=== PATIENT | male | born 1990 | race Caucasian/White ===

== ENCOUNTER 2021-02-04 17:53 | Emergency (ER) | payer OTHER, SELFPAY ==
[2021-02-04 18:00] VITALS: BP 153/104; PULSE 93; RESP 18; TEMP 36.2; O2SAT 97; BMI 45.0
--- NOTE | 2021-02-04 18:47 | ED_ITS ---
HPI - Extremity Problem General Chief complaint: Extremity Problem Stated complaint: ankle swelling Time Seen by Provider: 02/04/21 18:18 Source: patient Mode of arrival: ambulatory Limitations: no limitations History of Present Illness HPI Narrative: 30-year-old male previously healthy here with complaints of left ankle swelling and pain. Patient tells me that initially he had pain in his left great toe about 4 days ago and now the pain and swelling has migrated to his ankle. No injury or trauma. No fevers or chills. Patient smokes cigarettes daily. denies any known history of high blood pressure. Does not currently have a primary care doctor or insurance. Related Data Previous Rx's Medication Instructions Recorded amlodipine 5 mg tablet (Norvasc) 5 mg PO DAILY #30 tab 02/04/21 colchicine 0.6 mg tablet 0.6 mg PO BID #14 tab 02/04/21 oxycodone-acetaminophen 5 mg-325 1 tab PO Q6H PRN #10 tab 02/04/21 mg tablet (Percocet) prednisone 20 mg tablet 40 mg PO DAILY #10 tab 02/04/21 Allergies Allergy/AdvReac Type Severity Reaction Status Date / Time No Known Allergies Allergy Verified 02/04/21 17:59 [No Known Allergies*] Review of Systems Review of Systems: Yes all other systems are reviewed and are negative Constitutional: Constitutional: Reports no additional constitutional complaints, Denies body ache(s), Denies chills, Denies fever(s), Denies headache(s) and Denies weakness Eyes: Eyes: Reports no additional eye complaints and Denies change in vision ENT: Reports system reviewed and no additional complaints, except as documented, Denies dizziness, Denies headache(s), Denies nasal congestion, Denies nasal discharge and Denies neck pain Cardiovascular: Cardiovascular: Reports no additional cardiovascular complaints, Denies chest pain, Denies leg edema and Denies dyspnea Respiratory: Respiratory: Reports no additional respiratory complaints, Denies cough and Denies dyspnea Gastrointestinal: Gastrointestinal: Reports no additional gastrointestinal complaints, Denies abdominal pain, Denies diarrhea, Denies nausea and Denies vomiting Genitourinary: Genitourinary: Denies urinary incontinence Musculoskeletal: Musculoskeletal: Reports no additional musculoskeletal complaints, Denies back pain, Reports arthralgias, Reports joint swelling, Denies neck pain, Denies numbness and Denies tingling Integumentary/Breasts: Skin/Breast: Reports system reviewed and no additional complaints, except as docu and Denies rash Neurologic: Reports system reviewed and no additional complaints, except as documented, Denies Abnormal speech present, Denies dizziness, Denies headache(s), Denies numbness, Denies tingling and Denies weakness PMFSH Past Medical History Attestation statement: The following information was validated with the patient. Source: old records reviewed and nursing notes reviewed Social History Social History Advance Directives: No Advance Directives Information Provided: Yes Physical Exam Vital Signs: Vital Signs: Last Vital Signs Temp 97.1 F 02/04/21 18:00 Pulse 93 02/04/21 18:00 Resp 18 02/04/21 18:00 BP 153/104 H 02/04/21 18:00 Pulse Ox 97 02/04/21 18:00 Body Mass Index 45.0 Const: General: cooperative, healthy appearing, comfortable and no acute distress Orientation/consciousness: patient oriented x3 Limitations: no limitations HENMT: Head: Yes normal to inspection Ears: hearing grossly normal bilaterally General nose exam: Normal external nose present Face and sinus: Yes normal facial exam Mouth: Normal oral and palatal mucosa present Throat: Yes posterior oropharynx normal Eyes: General: appearance normal, both eyes and all related structures Pupils: Equal, round and reactive pupils present Neck: Neck: Yes normal visual inspection Chest: Chest palpation & inspection: normal inspection of the chest Resp: Effort & Inspection: normal respiratory effort Auscultation: clear to auscultation bilaterally Cardio: Rate: regular rate Rhythm: regular rhythm Peripheral pulses: Peripheral pulses 2+ throughout GI: Inspection: Yes normal to inspection Palpation (GI): Soft to palpation and nontender Auscultation: normal bowel sounds Back/Spine/Pelvis: Thoracic/Lumbar Spine: thoracic and lumbar spine normal to inspection Skin: General skin exam: no rashes or lesions noted Neuro: General: patient oriented x3, no focal motor deficits and normal sensation to monofilament Cranial nerves: Yes Equal, round and reactive pupils present Cognition (Neuro): normal cognition Speech: No Abnormal speech present Gait exam (Neuro): Normal gait present Motor exam (neuro): 5/5 motor strength present throughout Extrem: Other: There is tenderness to the 1st joint at the left foot with warmth and swelling. No redness. There is some slight swelling over the lateral aspect of the left ankle with some mild warmth and swelling. Full range of motion. Palpable pulses noted. General: Yes normal to inspection, Yes no pedal edema and Yes no calf tenderness Course Course Course Narrative: Exam is consistent with gout. likely secondary to uncontrolled high blood pressure, smoking history and dietary choices. we discussed this at length. patient needs to make dietary changes, limit smoking and we will start him on a low-dose blood pressure medication with close follow-up with his primary care doctor. Reviewed worrisome signs and symptoms of when to return to the emergency department. Comfortable discharge home. MDM - Extremity (Nontraumatic) Medical Records Attestation: I reviewed the patient's medical records. Procedures Procedure Narrative Procedure Narrative: cruthces for home Discharge Plan Discharge Clinical Impression: Gout Patient Disposition: Home, Self-Care Instructions: Low Purine Diet (ED), Gout (ED) Additional Instructions: You have gout. This is likely from smoking and to having uncontrolled high blood pressure. [employer] foods that cause gout flares. limit intake of these foods. follow a low-sodium diet. stop smoking start the medication for blood pressure. we are starting you on a low dose of this medication and you will need to follow up with primary care doctor so he may titrate the medication to better control your blood pressure Prescriptions: New amlodipine [Norvasc] 5 mg tablet 5 mg PO DAILY Qty: 30 RF: 0 oxycodone-acetaminophen [Percocet] 5-325 mg tablet 1 tab PO Q6H PRN (Reason: pain) Qty: 10 RF: 0 colchicine 0.6 mg tablet 0.6 mg PO BID Qty: 14 RF: 0 prednisone 20 mg tablet 40 mg PO DAILY Qty: 10 RF: 0 Referrals: Physician,Unknown J [Primary Care Provider] - 2 days Stand Alone Forms: Work/School Release Print Language: Guatemalan
== END 2021-02-04 19:15 | disposition home or self-care (01) ==
PROVIDERS: Emergency Provider Internal Medicine
DX: M10.072 Idiopathic gout, left ankle and foot (principal); M25.572 Pain in left ankle and joints of left foot; F17.200 Nicotine dependence, unspecified, uncomplicated
CPT/HCPCS: 99283

== ENCOUNTER 2023-05-07 08:46 | Emergency (ER) | payer SELFPAY ==
[2023-05-07 08:59] VITALS: BP 127/79; PULSE 91; RESP 20; TEMP 36.4; O2SAT 97; BMI 40.6
--- NOTE | 2023-05-07 10:34 | ED_ITS ---
HPI - General Adult General Chief complaint: Extremity Injury, Lower Stated complaint: both feet swollen Time Seen by Provider: 05/07/23 10:12 Source: patient and aerial photograph interpreter Mode of arrival: ambulatory Limitations: no limitations and language barrier History of Present Illness HPI narrative: Patient is a 32 year old assigned male at with a history of gout presenting to the emergency department today with left ankle swelling. Patient states that over the last few day she he has left sided ankle swelling and pain with any movement or touch. Patient denies any numbness, tingling, dizziness, lightheadedness, abdominal pain, nausea, vomiting, fever, chills, blurry vision, double vision, loss of vision, chest pain, difficulty breathing, shortness of breath, back pain, night sweats, pain with urination, increased urinary frequency, increased urinary urgency, blood in his urine or stool, syncope or a near syncopal episode, recent trauma or falls, bowel incontinence, bladder incontinence, bowel retention, bladder retention, or any other complaints at this time. Onset (ago): day(s) Location: left and lower extremity Radiation: non-radiation Severity: mild Severity scale (1-10): 3 Quality: aching and dull Pain Consistency: constant Relieving factors: none Exacerbating factors: movement and other (palpation) Associated symptoms: denies other symptoms Treatments prior to arrival: none Related Data Previous Rx's Medication Instructions Recorded amlodipine 5 mg tablet (Norvasc) 5 mg PO DAILY #30 tabs 02/04/21 colchicine 0.6 mg tablet 0.6 mg PO BID #14 tabs 02/04/21 oxycodone-acetaminophen 5 mg-325 1 tab PO Q6H PRN pain #10 tabs 02/04/21 mg tablet (Percocet) prednisone 20 mg tablet 40 mg (2 x 20 mg) PO DAILY #10 tabs 02/04/21 naproxen 500 mg tablet 500 mg PO BID 7 days #14 tabs 05/07/23 prednisone 20 mg tablet 20 mg PO DAILY 7 days #7 tabs 05/07/23 Allergies Allergy/AdvReac Type Severity Reaction Status Date / Time No Known Allergies Allergy Verified 02/04/21 17:59 [No Known Allergies*] Review of Systems Constitutional: Constitutional: Reports no additional constitutional complaints, Denies chills, Denies fever(s) and Denies night sweats Eyes: Eyes: Reports no additional eye complaints, Denies blurry vision, Denies change in vision, Denies diplopia, Denies eye discharge, Denies loss of vision and Denies eye pain ENT: Denies dizziness Cardiovascular: Cardiovascular: Reports no additional cardiovascular complaints, Denies chest pain, Denies lightheadedness, Denies Loss of Consciousness and Denies dyspnea Respiratory: Respiratory: Reports no additional respiratory complaints and Denies dyspnea Gastrointestinal: Gastrointestinal: Reports no additional gastrointestinal complaints, Denies abdominal pain, Denies melena, Denies hematochezia, Denies change in bowel habits and Denies change in stool character Genitourinary: Genitourinary: Reports no additional male genitourinary complaints, Denies hematuria, Denies oliguria, Denies difficulty urinating, Denies dysuria, Denies urinary frequency, Denies urinary hesitancy, Denies urinary incontinence and Denies urinary urgency Musculoskeletal: Musculoskeletal: Reports no additional musculoskeletal complaints, Denies numbness and Denies tingling Comments: left ankle swelling and pain Neurologic: Denies dizziness, Denies loss of vision, Denies numbness and Denies tingling Psychiatric: Psychiatric: Reports no additional psychiatric complaints Endocrine: Endocrine: Reports no additional endocrine complaints Hematologic/Lymphatic: Hematologic/Lymphatic: Reports no additional hematologic/lymphatic complaints Allergic/Immunologic: Allergic/Immunologic: Reports no additional allergic/immunologic complaints [facility] Past Medical History Attestation statement: The following information was validated with the patient. Source: old records reviewed and nursing notes reviewed Social History Social History Advance Directives: No Advance Directives Information Provided: No Physical Exam ED Vital Signs: Vital Signs - 24 hr 05/07/23 08:59 Temperature 97.5 F Pulse Rate 91 Respiratory Rate 20 Blood Pressure 127/79 Pulse Oximetry 97 Oxygen Delivery Method Room Air BMI result Body Mass Index 40.6 Const General: cooperative, no acute distress, alert and awake Nutritional Appearance: well nourished Orientation/consciousness: patient oriented x3 Limitations: no limitations HENMT Head: Yes normal to inspection and Yes atraumatic Ears: hearing grossly normal bilaterally and external ears normal General nose exam: Normal external nose present, no nasal discharge noted and no epistaxis Face and sinus: Yes normal facial exam, No abrasion and No laceration Mouth: Normal oral and palatal mucosa present, no drooling and no muffled voice Eyes General: appearance normal, both eyes and all related structures Periorbital: periorbital findings normal Eyelids: Yes eyelids normal Conjunctivae: conjunctivae normal Pupils: Equal, round and reactive pupils present EOM: EOMs intact bilaterally Neck Neck: Yes normal visual inspection, Yes full ROM and Yes no lymphadenopathy Chest Chest palpation & inspection: normal inspection of the chest Resp Effort & Inspection: normal respiratory effort and able to speak in complete sentences GI Inspection: Yes normal to inspection Neuro General: patient oriented x3 and moves all extremities Cranial nerves: Yes Equal, round and reactive pupils present Cognition (Neuro): normal cognition Motor exam (neuro): 5/5 motor strength present throughout Sensory Exam: Normal double simultaneous stimulation for sensation Coordination: [id number] test normal Extrem Other: left ankle swelling and pain to palpation of the left ankle General: Yes full ROM and Yes capillary refill normal Psych Appearance: grossly normal Mental Status: mental status grossly normal Affect: normal affect Attitude: cooperative Thought process: Normal thought process present Thought content: Normal thought content present Insight: Good insight present (Psych) Medications Administered Discontinued Medications Generic Name Dose Route Start Last Admin Trade Name Freq PRN Reason Stop Dose Admin Ketorolac Tromethamine 15 mg 05/07/23 10:56 05/07/23 11:59 Ketorolac Tromethamine 15 Mg/Ml Vial IM 05/07/23 10:57 15 mg ONCE ONE Administration Methylprednisolone Sodium Succinate 60 mg 05/07/23 10:56 05/07/23 11:59 Methylprednisolone Sod Succ 125 Mg/2 Ml Vial IM 05/07/23 10:57 60 mg ONCE ONE Administration Medical Decision Making Medical Decision Making [facility] Narrative: Patient is a 32 year old assigned male at with a history of gout presenting to the emergency department today with left sided ankle pain. Patient's physical exam was as noted in the physical exam portion of this note. Patient's physical exam is most consistent with a gout flare. I explained my physical exam findings to the patient. I answered all questions asked by the patient. Patient received IM Toradol and Solu-medrol which he stated helped his symptoms significantly. I stressed the importance of the patient taking his medication as prescribed. I stressed the importance of the patient following up with his primary care provider. I stressed the importance of the patient returning to the emergency department immediately if his symptoms were to worsen or if he were to develop any dizziness, shortness of breath, difficulty breathing, chest pain, blurry vision, loss of vision, nausea, vomiting, abdominal pain, fever, chills, back pain, or any other complaints. Patient verbalized agreement and understanding with this treatment plan and discharge. Differential Diagnosis Differential Diagnoses: The differential diagnosis associated with the presentation includes Left ankle gout Left ankle pain Left ankle swelling Admission/Observation Consideration of admission/observation: Escalation of care including admission/observation considered Patient would have been admitted to the hospital had his clinical presentation warranted hospital admission. Tests considered The following testing was considered but not selected: An x-ray of the left ankle was considered however, the patient's current clinical presentation did not warrant it. This was explained to the patient who verbalized understanding and agreement. Prescription Management I considered prescription management with: Pain Medication (patient prescribed pain medication) Chronic Conditions Patient?s care impacted by: Other (hx of gout) Discharge Plan Discharge Clinical Impression: Gout Patient Disposition: Home, Self-Care Instructions: Low Purine Diet (ED), Gout (ED) Additional Instructions: Follow up with your primary care provider. Return to the emergency department immediately if your symptoms worsen or if you develop any dizziness, shortness of breath, difficulty breathing, chest pain, blurry vision, loss of vision, nausea, vomiting, abdominal pain, fever, chills, back pain, or any other complaints. Jesse un seguimiento con berkowitz proveedor de atenci?n primaria. Regrese al departamento de emergencias inmediatamente si karin s?ntomas empeoran o si presenta mareos, dificultad para respirar, dificultad para respirar, dolor en el pecho, visi?n borrosa, p?rdida de la visi?n, n?useas, v?mitos, dolor abdominal, fiebre, escalofr?os, dolor de espalda o cualquier otras quejas. Prescriptions: New prednisone 20 mg tablet 20 mg PO DAILY 7 Days Qty: 7 0RF naproxen 500 mg tablet 500 mg PO BID 7 Days Qty: 14 0RF No Action amlodipine [Norvasc] 5 mg tablet 5 mg PO DAILY Qty: 30 0RF oxycodone-acetaminophen [Percocet] 5-325 mg tablet 1 tab PO Q6H PRN (Reason: pain) Qty: 10 0RF colchicine 0.6 mg tablet 0.6 mg PO BID Qty: 14 0RF Rx Instructions: discontinue when feeling better prednisone 20 mg tablet 40 mg PO DAILY Qty: 10 0RF Referrals: [facility] [place] Family Medicine [Provider Group] (Call to establish and follow up with a primary care provider. If you already have a primary care provider, please follow up with them. Llame para establecer y realizar un seguimiento con un proveedor de atenci?n primaria. Si ya tiene un proveedor de atenci?n primaria, jesse un seguimiento con ?l.) [facility] [place] Primary Care, Mellissa [Provider Group] (Call to establish and follow up with a primary care provider. If you already have a primary care provider, please follow up with them. Llame para establecer y realizar un seguimiento con un proveedor de atenci?n p rimaria. Si ya tiene un proveedor de atenci?n primaria, jesse un seguimiento con ?l.) [facility] [place] Primary Care,Jennifer [Provider Group] (Call to establish and follow up with a primary care provider. If you already have a primary care provider, please follow up with them. Llame para establecer y realizar un seguimiento con un proveedor de atenci?n primaria. Si ya tiene un proveedor de atenci?n primaria, jesse un seguimiento con ?l.) Interventions: ED Discharge Assessment Last Done: 05/07/23 12:06 Discharge Date/Time: 05/07/23 12:06 Print Language: Gibraltarian
[2023-05-07] MEDS: methylPREDNISolone Sod Succ 125 MG/2 ML VIAL 60 MG IM (11:59)
[2023-05-07] MEDS: Ketorolac Tromethamine 15 MG/ML VIAL IM (11:59)
== END 2023-05-07 12:06 | disposition home or self-care (01) ==
PROVIDERS: Emergency Provider Emergency Medicine
DX: M10.9 Gout, unspecified (principal)
CPT/HCPCS: 96372; 99283; 99284; J1885; J2930

== ENCOUNTER 2024-05-29 19:52 | Emergency (ER) | payer MEDICAID, SELFPAY ==
[2024-05-29 20:01] VITALS: BP 145/83; PULSE 104; RESP 18; TEMP 37.1; O2SAT 95; BMI 46.1
--- NOTE | 2024-05-29 20:03 | ED.GENADULT ---
HPI - General Adult General Chief complaint: Extremity Problem Stated complaint: bilateral feet redness swelling Time Seen by Provider: 05/29/24 23:08 Source: patient Mode of arrival: ambulatory Limitations: no limitations History of Present Illness ED Provider: HPI narrative: Patient is 34 years old with history of gout comes here for left ankle pain started few days ago getting worse patient's feel throbbing pain in left ankle been while not moving patient has been seen here last year for the same. Patient has had red meat last few days Related Data Previous Rx's ?Medication ?Instructions ?Recorded amlodipine 5 mg tablet (Norvasc) 5 mg PO DAILY #30 tabs 02/04/21 colchicine 0.6 mg tablet 0.6 mg PO BID #14 tabs 02/04/21 oxycodone-acetaminophen 5 mg-325 1 tab PO Q6H PRN pain #10 tabs 02/04/21 mg tablet (Percocet) prednisone 20 mg tablet 40 mg (2 x 20 mg) PO DAILY #10 tabs 02/04/21 naproxen 500 mg tablet 500 mg PO BID 7 days #14 tabs 05/07/23 prednisone 20 mg tablet 20 mg PO DAILY 7 days #7 tabs 05/07/23 allopurinol 100 mg tablet 100 mg PO DAILY #90 tabs 05/30/24 colchicine 0.6 mg tablet 0.6 mg PO DAILY #90 tabs 05/30/24 ibuprofen 600 mg tablet 600 mg PO Q6H PRN fever or pain 05/30/24 #30 tabs prednisone 20 mg tablet 60 mg (3 x 20 mg) PO DAILY #15 tabs 05/30/24 Allergies Allergy/AdvReac Type Severity Reaction Status Date / Time No Known Allergies Allergy Verified 05/29/24 20:06 [No Known Allergies*] Review of Systems Review of Systems: Yes all other systems are reviewed and are negative PMFSH Social History Social History Advance Directives: No Do you have a plan to hurt others: No Plan Physical Exam ED Vital Signs: Vital Signs - 24 hr 05/29/24 20:01 05/30/24 00:48 Temperature 98.7 F Pulse Rate 104 H 85 Respiratory Rate 18 18 Blood Pressure 145/83 H 123/51 L Pulse Oximetry 95 97 Oxygen Delivery Method Room Air Room Air BMI result Body Mass Index 46.1 Appearance: Alert. Oriented X3. No acute distress. Eyes: no pallor or icterus ENT: Pharynx normal. Oral Mucosa moist Neck: Normal inspection. Neck supple. CVS: Normal heart rate and rhythm. Pulses normal. Respiratory: No respiratory distress. Equal air entry bilateral, no wheezing/rales/rhonchi Abd: soft, not tender Skin: Skin warm and dry. Normal skin color. Normal skin turgor. Extremities: Left ankle diffuse swelling no deformity neurovascular intact no calf tenderness Neuro: Oriented X 3. Course Course Course Narrative: This is an RME: Additional HPI, ROS, PE not included below will be deferred to primary provider. RME assessment and note performed by: Rosemary Sky PA-C This is a [id number]-male who presents to the ER with complaints of bilateral leg pain and swelling. Reporting hx of gout and believes that symptoms feel similar. 2+ pitting edema noted BL. No known hx of CHF. No drug hx. No CP or SOB. Plan: Labs, further ER eval needed Medications Administered Discontinued Medications Generic Name Dose Route Start Last Admin Trade Name Freq PRN Reason Stop Dose Admin Colchicine 1.2 mg 05/29/24 23:13 05/29/24 23:51 Colchicine 0.6 Mg Tablet PO 05/29/24 23:14 1.2 mg ONCE ONE Administration Prednisone 60 mg 05/29/24 23:13 05/29/24 23:51 Prednisone 20 Mg Tablet PO 05/29/24 23:14 60 mg ONCE ONE Administration Medical Decision Making Medical Decision Making [facility] Narrative: Patient's gouty arthritis of the left ankle given prednisone colchicine feeling much better will discharge on same Lab Data 05/29/24 20:42 05/29/24 20:42 Labs: Lab Results 05/29/24 Range/Units 20:42 WBC 12.3 H (4.8-10.8) X10*3/uL RBC 4.86 (4.60-5.80) X10*6/uL Hgb 14.9 (14.0-18.0) g/dl Hct 42.9 (42.0-52.0) % MCV 88.3 (80.0-98.0) fL MCH 30.7 (27.0-33.0) pg MCHC 34.7 (31.0-36.0) g/dl RDW 12.7 (11.0-16.0) % Plt Count 250 (160-400) X10*3/uL MPV 11.0 (9.4-12.4) fL Immature Gran % (Auto) 0.3 (0.0-0.4) % Neut % (Auto) 66.7 (45-73) % Lymph % (Auto) 21.0 (20-40) % [place] % (Auto) 7.4 (2-11) % Eos % (Auto) 4.2 H (0-4) % Baso % (Auto) 0.4 (0-2) % Lymph # (Auto) 2.6 (1.2-4.9) X10*3/uL [place] # (Auto) 0.9 (0.1-1.2) X10*3/uL Eos # (Auto) 0.5 H (0.0-0.4) X10*3/uL Baso # (Auto) 0.1 (0.0-0.2) X10*3/uL Abs Immat Gran (auto) 0.04 H (0.00-0.03) X10*3/uL Absolute Neuts (auto) 8.2 (2.0-8.3) x10*3/uL Absolute Nucleated RBC 0.000 (0.0-0.012) X10*3/uL Nucleated RBC % (auto) 0.0 (0.0-0.2) /100WBC ESR 11 (0-15) MM/HR Sodium 138 (135-145) mmol/L Potassium 4.1 (3.3-5.1) mmol/L Chloride 103 (96-108) mmol/L Carbon Dioxide 26 (22-29) mmol/L Anion Gap 13 (12-20) BUN 15 (9-16) mg/dL Creatinine 0.92 (0.5-1.4) mg/dL Estim Creat Clear Calc 169.9 Estimated GFR > 60 Random Glucose 111 (60-115) mg/dL Uric Acid 8.6 H (3.4-7.0) mg/dL Calcium 9.4 (8.4-10.2) mg/dL Total Bilirubin 0.3 (0.0-1.0) mg/dL Direct Bilirubin 0.1 (0.0-0.5) mg/dL AST 17 (5-37) U/L ALT 23 (0-40) U/L Alkaline Phosphatase 70 (39-117) U/L C-Reactive Protein 3.93 H (< or = 0.50) mg/dL B-Natriuretic Peptide < 10 (<100) pg/mL Total Protein 8.0 (6.5-8.0) g/dL Albumin 4.0 (3.5-5.0) g/dL Discharge Plan Discharge Clinical Impression: Gout Patient Disposition: Home, Self-Care Instructions: Low Purine Diet (ED), Gout (ED) Additional Instructions: Take medication as prescribed Follow up with PCP Prescriptions: New prednisone 20 mg tablet 60 mg PO DAILY Qty: 15 0RF colchicine 0.6 mg tablet 0.6 mg PO DAILY Qty: 90 0RF allopurinol 100 mg tablet 100 mg PO DAILY Qty: 90 0RF ibuprofen 600 mg tablet 600 mg PO Q6H PRN (Reason: fever or pain) Qty: 30 0RF No Action amlodipine [Norvasc] 5 mg tablet 5 mg PO DAILY Qty: 30 0RF oxycodone-acetaminophen [Percocet] 5-325 mg tablet 1 tab PO Q6H PRN (Reason: pain) Qty: 10 0RF colchicine 0.6 mg tablet 0.6 mg PO BID Qty: 14 0RF Rx Instructions: discontinue when feeling better prednisone 20 mg tablet 40 mg PO DAILY Qty: 10 0RF prednisone 20 mg tablet 20 mg PO DAILY 7 Days Qty: 7 0RF naproxen 500 mg tablet 500 mg PO BID 7 Days Qty: 14 0RF Print Language: Trinidadian
--- NOTE | 2024-05-29 20:08 | ECG_ITS ---
Test Reason : tachycardia Blood Pressure : */* mmHG Vent. Rate : 100 BPM Atrial Rate : 100 BPM P-R Int : 158 ms QRS Dur : 94 ms QT Int : 308 ms P-R-T Axes : 43 20 23 degrees QTcB Int : 397 ms Normal sinus rhythm Minimal voltage criteria for LVH, may be normal variant ( R in aVL ) Borderline ECG When compared with ECG of 23-Apr-2017 19:34, No significant change was found Referred By: Rosemary Sky Electronically Signed By: Eleazar Cartagena
[2024-05-29 20:47] LABS: MANUAL DIFF FLAG NO
[2024-05-29 21:05] LABS: Alanine Aminotransferase 23 U/L (0-40); Alkaline Phosphatase 70 U/L (39-117); Anion Gap 13 (12-20); Aspartate Amino Transferase 17 U/L (5-37); Bilirubin Direct 0.1 mg/dL (0.0-0.5); Bilirubin Total 0.3 mg/dL (0.0-1.0); Blood Urea Nitrogen 15 mg/dL (9-16); C Reactive Protein 3.93 mg/dL (< or = 0.50); Calcium 9.4 mg/dL (8.4-10.2); Carbon Dioxide 26 mmol/L (22-29); Chloride 103 mmol/L (96-108); Creatinine Clr Calc Pharmacy 169.9; Estimated Glomerular Filt Rate > 60; Glucose Random 111 mg/dL (60-115); Potassium 4.1 mmol/L (3.3-5.1); Sodium 138 mmol/L (135-145); Uric Acid 8.6 mg/dL (3.4-7.0)
[2024-05-29 21:10] LABS: B Type Natriuretic Peptide < 10 pg/mL (<100)
[2024-05-29 21:20] LABS: Basophils Absolute Auto 0.1 X10*3/uL (0.0-0.2); Basophils Percent Auto 0.4 % (0-2); Eosinophils Absolute Auto 0.5 X10*3/uL (0.0-0.4); Eosinophils Percent Auto 4.2 % (0-4); Hematocrit 42.9 % (42.0-52.0); Hemoglobin 14.9 g/dl (14.0-18.0); Imm Gran Abs Auto 0.04 X10*3/uL (0.00-0.03); Imm Gran Pct Auto 0.3 % (0.0-0.4); Lymphocytes Absolute Auto 2.6 X10*3/uL (1.2-4.9); Mean Corpuscular HGB Conc 34.7 g/dl (31.0-36.0); Mean Corpuscular Hemoglobin 30.7 pg (27.0-33.0); Mean Corpuscular Volume 88.3 fL (80.0-98.0); Monocytes Absolute Auto 0.9 X10*3/uL (0.1-1.2); Monocytes Percent Auto 7.4 % (2-11); Neutrophils Absolute Auto 8.2 x10*3/uL (2.0-8.3); Neutrophils Percent Auto 66.7 % (45-73); Platelet Count 250 X10*3/uL (160-400); Red Blood Count 4.86 X10*6/uL (4.60-5.80); Red Cell Distribution Width 12.7 % (11.0-16.0); White Blood Count 12.3 X10*3/uL (4.8-10.8)
[2024-05-29 21:25] LABS: Erythrocyte Sedimentation Rate 11 MM/HR (0-15)
[2024-05-29] MEDS: predniSONE 20 MG TABLET 60 MG PO (23:51)
[2024-05-29] MEDS: Colchicine 0.6 MG TABLET 1.2 MG PO (23:51)
[2024-05-30 00:41] VITALS: BP 123/51; PULSE 85; RESP 18; TEMP 36.6; O2SAT 97
[2024-05-30 00:48] VITALS: BP 123/51; PULSE 85; RESP 18; O2SAT 97
== END 2024-05-30 00:41 | disposition home or self-care (01) ==
PROVIDERS: Physician Assistant Medical; Emergency Provider Internal Medicine
DX: M10.9 Gout, unspecified (principal); M25.572 Pain in left ankle and joints of left foot; Z79.899 Other long term (current) drug therapy
CPT/HCPCS: 36415; 80048; 80076; 83880; 84550; 85025; 85652; 86140; 93005; 99283; 99284

== ENCOUNTER → 2024-05-29 20:08 | Outpatient (BNV) | payer MEDICAID, SELFPAY | PROVIDERS: Emergency Provider Internal Medicine; Visit Provider Internal Medicine Cardiovascular Disease | DX: R00.0 Tachycardia, unspecified (principal); R94.31 Abnormal electrocardiogram [ECG] [EKG] | CPT/HCPCS: 93010 ==

== ENCOUNTER 2024-07-06 18:57 | Emergency (ER) | payer OTHER, SELFPAY ==
[2024-07-06 19:42] VITALS: BP 122/79; PULSE 94; RESP 20; TEMP 38; O2SAT 97; BMI 47.3
--- NOTE | 2024-07-06 20:09 | ED.GENADULT ---
HPI - General Adult General Chief complaint: Skin/Abscess/Foreign Body Stated complaint: boil lower back Time Seen by Provider: 07/06/24 20:05 Source: patient and family Limitations: no limitations and language barrier History of Present Illness ED Provider: Victorina Larson PA-C HPI narrative: 34-year-old male with a history of morbid obesity presents with abscess x 1 week. Patient states he developed a tender swelling over his coccyx, that has progressed. Associated worsening pain, swelling, redness. The infection is now draining pus. Associated chills, no documented fevers. Related Data Previous Rx's ?Medication ?Instructions ?Recorded amlodipine 5 mg tablet (Norvasc) 5 mg PO DAILY #30 tabs 02/04/21 colchicine 0.6 mg tablet 0.6 mg PO BID #14 tabs 02/04/21 oxycodone-acetaminophen 5 mg-325 1 tab PO Q6H PRN pain #10 tabs 02/04/21 mg tablet (Percocet) prednisone 20 mg tablet 40 mg (2 x 20 mg) PO DAILY #10 tabs 02/04/21 naproxen 500 mg tablet 500 mg PO BID 7 days #14 tabs 05/07/23 prednisone 20 mg tablet 20 mg PO DAILY 7 days #7 tabs 05/07/23 allopurinol 100 mg tablet 100 mg PO DAILY #90 tabs 05/30/24 colchicine 0.6 mg tablet 0.6 mg PO DAILY #90 tabs 05/30/24 ibuprofen 600 mg tablet 600 mg PO Q6H PRN fever or pain 05/30/24 #30 tabs prednisone 20 mg tablet 60 mg (3 x 20 mg) PO DAILY #15 tabs 05/30/24 doxycycline hyclate 100 mg capsule 100 mg PO BID #14 caps 07/06/24 oxycodone 5 mg tablet 5 mg PO Q6H PRN pain #8 tabs 07/06/24 Allergies Allergy/AdvReac Type Severity Reaction Status Date / Time No Known Allergies Allergy Verified 07/06/24 19:47 [No Known Allergies*] Review of Systems Review of Systems: Yes all other systems are reviewed and are negative Constitutional: Constitutional: Denies fatigue and Denies fever(s) Cardiovascular: Cardiovascular: Denies chest pain and Denies dyspnea Respiratory: Respiratory: Denies cough and Denies dyspnea Gastrointestinal: Gastrointestinal: Denies abdominal pain Integumentary/Breasts: Skin/Breast: Reports furuncle, Reports erythema and Reports skin swelling Endocrine: Endocrine: Denies fatigue PMFSH Past Medical History Attestation statement: The following information was validated with the patient. Social History Social History Unable to assess alcohol history related to: Unknown Use of substances other than those prescribed or required for medical reasons: Unknown Advance Directives: No Advance Directives Information Provided: No Physical Exam ED Vital Signs: Vital Signs - 24 hr 07/06/24 19:42 07/06/24 21:05 07/06/24 22:13 Temperature 100.4 F Pulse Rate 94 Respiratory Rate 20 20 Blood Pressure 122/79 125/69 Pulse Oximetry 97 Oxygen Delivery Method Room Air 07/06/24 22:17 Temperature Pulse Rate Respiratory Rate 16 Blood Pressure 111/64 Pulse Oximetry 97 Oxygen Delivery Method Room Air BMI result Body Mass Index 47.3 Const Other: Alert Orientation/consciousness: patient oriented x3 Resp Effort & Inspection: normal respiratory effort Cardio Other: Normal peripheral perfusion GI Other: Tender, indurated, erythematous swelling superior to the buttock crease consistent with pilonidal abscess Skin Other: Warm dry no rash Neuro General: patient oriented x3, gait normal, no focal motor deficits and CN's II-XI intact bilaterally Psych Other: Cooperative Course Reevaluation(s) Reevaluation #1: This is a sepsis focused exam performed on July 06 at 2010, which is also time stamped again below. The patient was febrile, adding blood cultures, lactic acid we will order weight based IV fluid until the lactic results, starting vancomycin. To note the patient was not hemodynamically unstable, he does not require weight based IV fluid. Time: 20:11 Reevaluation #2: lactic resulted, is 2, he does not require weight based IVF, not hypotensive, he will receive 1 L Time: 20:45 Medications Administered Discontinued Medications Generic Name Dose Route Start Last Admin Trade Name Freq PRN Reason Stop Dose Admin Acetaminophen 975 mg 07/06/24 20:12 07/06/24 20:57 Acetaminophen 325 Mg Tablet PO 07/06/24 20:13 975 mg ONCE ONE Administration Diazepam 2.5 mg 07/06/24 20:56 07/06/24 21:06 Diazepam 10 Mg/2 Ml Cartridge IVPUSH 07/06/24 20:57 2.5 mg STAT STA Administration Sodium Chloride 4,354.5 mls @ 4,354.5 mls/hr 07/06/24 20:11 07/06/24 20:57 Ns 30 ml/kg infuse over 1 hr (4354.5 ml) 07/06/24 21:10 Not Given IV .Q1H STA Vancomycin HCl 2,000 mg in 500 mls @ 250 mls/hr 07/06/24 20:11 07/06/24 20:28 Vancomycin/Ns IV 07/06/24 22:10 250 mls/hr ONCE ONE Administration Sodium Chloride 1,000 mls @ 999 mls/hr 07/06/24 20:45 07/06/24 22:13 Ns IV 07/06/24 21:45 Infused .Q1H1M KATHY Infusion Morphine Sulfate 4 mg 07/06/24 20:56 07/06/24 21:05 Morphine Sulfate 4 Mg/Ml Cartridge IVPUSH 07/06/24 20:57 4 mg ONCE ONE Administration Protocol Procedures Abscess I/D Site: other (Pilonidal) Sedation/analgesia: none Local Anesthetic: lidocaine 1% and with epi Amount of anesthesia used (mL): 10 Technique: needle aspiration, incised with blade and ultrasound guided Amount of fluid expressed (mL): 25 Sent for culture/gram staining?: No Irrigation: Yes Packing used?: [email or web address] Medical Decision Making Medical Decision Making MDM Narrative: 34-year-old male with a history of morbid obesity presents with abscess x 1 week. Patient states he developed a tender swelling over his coccyx, that has progressed. Associated worsening pain, swelling, redness. The infection is now draining pus. Associated chills, no documented fevers. No chronic issues History: Per patient I have considered the following differential diagnoses: Cellulitis, purulent cellulitis, pilonidal abscess, perirectal abscess , sepsis Plan: Concer for sepsis, The patient was febrile, adding blood cultures, lactic acid we will order weight based IV fluid until the lactic results, starting vancomycin. To note the patient was not hemodynamically unstable, he does not require weight based IV fluid. We will give Tylenol for the fever. Patient has an infected pilonidal cyst. We will I and D at bedside. We will premedicate with morphine and IV Valium. No indication for imaging. I have independently reviewed the following tests: Labs: Leukocytosis with left shift, not anemic, no electrolyte abnormality, lactic 2 Lab Data 07/06/24 20:12 07/06/24 20:12 Labs: Lab Results 07/06/24 Range/Units 20:12 WBC 15.6 H (4.8-10.8) X10*3/uL RBC 5.16 (4.60-5.80) X10*6/uL Hgb 16.0 (14.0-18.0) g/dl Hct 46.6 (42.0-52.0) % MCV 90.3 (80.0-98.0) fL MCH 31.0 (27.0-33.0) pg MCHC 34.3 (31.0-36.0) g/dl RDW 13.2 (11.0-16.0) % Plt Count 231 (160-400) X10*3/uL MPV 10.3 (9.4-12.4) fL Immature Gran % (Auto) 0.3 (0.0-0.4) % Neut % (Auto) 80.5 H (45-73) % Lymph % (Auto) 11.2 L (20-40) % [place] % (Auto) 6.2 (2-11) % Eos % (Auto) 1.5 (0-4) % Baso % (Auto) 0.3 (0-2) % Lymph # (Auto) 1.7 (1.2-4.9) X10*3/uL [place] # (Auto) 1.0 (0.1-1.2) X10*3/uL Eos # (Auto) 0.2 (0.0-0.4) X10*3/uL Baso # (Auto) 0.0 (0.0-0.2) X10*3/uL Abs Immat Gran (auto) 0.05 H (0.00-0.03) X10*3/uL Absolute Neuts (auto) 12.6 H (2.0-8.3) x10*3/uL Absolute Nucleated RBC 0.000 (0.0-0.012) X10*3/uL Nucleated RBC % (auto) 0.0 (0.0-0.2) /100WBC Sodium 139 (135-145) mmol/L Potassium 3.9 (3.3-5.1) mmol/L Chloride 107 (96-108) mmol/L Carbon Dioxide 22 (22-29) mmol/L Anion Gap 14 (12-20) BUN 6 L (9-16) mg/dL Creatinine 0.80 (0.5-1.4) mg/dL Estim Creat Clear Calc 181.4 Estimated GFR > 60 Random Glucose 108 (60-115) mg/dL Lactic Acid 2.0 (0.5-2.0) mmol/L Calcium 9.1 (8.4-10.2) mg/dL Total Bilirubin 0.4 (0.0-1.0) mg/dL AST 16 (5-37) U/L ALT 21 (0-40) U/L Alkaline Phosphatase 76 (39-117) U/L Total Protein 7.4 (6.5-8.0) g/dL Albumin 4.0 (3.5-5.0) g/dL Discharge Plan Discharge Clinical Impression: Pilonidal abscess Patient Disposition: Home, Self-Care Instructions: Abscess (ED), Sitz Bath (DC) Additional Instructions: You have an abscess that was drained. See home care instructions. In 2 days, let hot water run over your backside, you can abruptly with the packing at that time. Keep the area clean and dry. Take the doxycycline as directed. You need to follow up with your primary care provider for a wound check within 3-5 days. Prescriptions: New doxycycline hyclate 100 mg capsule 100 mg PO BID Qty: 14 0RF oxycodone 5 mg tablet 5 mg PO Q6H PRN (Reason: pain) Qty: 8 0RF Rx Instructions: Partial Fill upon patient request. No Action amlodipine [Norvasc] 5 mg tablet 5 mg PO DAILY Qty: 30 0RF oxycodone-acetaminophen [Percocet] 5-325 mg tablet 1 tab PO Q6H PRN (Reason: pain) Qty: 10 0RF colchicine 0.6 mg tablet 0.6 mg PO BID Qty: 14 0RF Rx Instructions: discontinue when feeling better prednisone 20 mg tablet 40 mg PO DAILY Qty: 10 0RF prednisone 20 mg tablet 60 mg PO DAILY Qty: 15 0RF colchicine 0.6 mg tablet 0.6 mg PO DAILY Qty: 90 0RF allopurinol 100 mg tablet 100 mg PO DAILY Qty: 90 0RF ibuprofen 600 mg tablet 600 mg PO Q6H PRN (Reason: fever or pain) Qty: 30 0RF prednisone 20 mg tablet 20 mg PO DAILY 7 Days Qty: 7 0RF naproxen 500 mg tablet 500 mg PO BID 7 Days Qty: 14 0RF Stand Alone Forms: Work/School Release Print Language: Telugu
[2024-07-06 20:17] LABS: MANUAL DIFF FLAG NO
[2024-07-06 20:19] LABS: Basophils Percent Auto 0.3 % (0-2); Eosinophils Absolute Auto 0.2 X10*3/uL (0.0-0.4); Eosinophils Percent Auto 1.5 % (0-4); Hematocrit 46.6 % (42.0-52.0); Imm Gran Abs Auto 0.05 X10*3/uL (0.00-0.03); Imm Gran Pct Auto 0.3 % (0.0-0.4); Lymphocytes Absolute Auto 1.7 X10*3/uL (1.2-4.9); Lymphocytes Percent Auto 11.2 % (20-40); Mean Corpuscular HGB Conc 34.3 g/dl (31.0-36.0); Mean Corpuscular Volume 90.3 fL (80.0-98.0); Mean Platelet Volume 10.3 fL (9.4-12.4); Monocytes Percent Auto 6.2 % (2-11); Neutrophils Absolute Auto 12.6 x10*3/uL (2.0-8.3); Neutrophils Percent Auto 80.5 % (45-73); Platelet Count 231 X10*3/uL (160-400); Red Blood Count 5.16 X10*6/uL (4.60-5.80); Red Cell Distribution Width 13.2 % (11.0-16.0); White Blood Count 15.6 X10*3/uL (4.8-10.8)
[2024-07-06] MEDS: vancomycin/NS 2,000 MG/500 ML PLAST..BAG 250 MG IV (20:28)
[2024-07-06 20:34] LABS: Alanine Aminotransferase 21 U/L (0-40); Alkaline Phosphatase 76 U/L (39-117); Anion Gap 14 (12-20); Aspartate Amino Transferase 16 U/L (5-37); Bilirubin Total 0.4 mg/dL (0.0-1.0); Blood Urea Nitrogen 6 mg/dL (9-16); Calcium 9.1 mg/dL (8.4-10.2); Carbon Dioxide 22 mmol/L (22-29); Chloride 107 mmol/L (96-108); Creatinine Clr Calc Pharmacy 181.4; Estimated Glomerular Filt Rate > 60; Glucose Random 108 mg/dL (60-115); Potassium 3.9 mmol/L (3.3-5.1); Sodium 139 mmol/L (135-145); Total Protein 7.4 g/dL (6.5-8.0)
[2024-07-06] MEDS: 0.9 % Sodium Chloride 1,000 ML 999 ML IV (20:56)
[2024-07-06] MEDS: Acetaminophen 325 MG TABLET 975 MG PO (20:57)
[2024-07-06 21:05] VITALS: RESP 20
[2024-07-06] MEDS: Morphine Sulfate 4 MG/ML CARTRIDGE IVPUSH (21:05)
[2024-07-06] MEDS: diazePAM 10 MG/2 ML CARTRIDGE 2.5 MG IVPUSH (21:06)
[2024-07-06 22:13] VITALS: BP 125/69
[2024-07-06 22:17] VITALS: BP 111/64; RESP 16; O2SAT 97
--- NOTE | 2024-07-06 23:24 | PC.NURSE ---
Care assumed of pt at this time. Awaiting dispo.
[2024-07-06 23:44] VITALS: BP 117/81; PULSE 77; RESP 16; TEMP 36.9; O2SAT 98
[2024-07-06 23:47] VITALS: BP 117/81; PULSE 77; RESP 16; TEMP 36.9; O2SAT 98
== END 2024-07-06 23:47 | disposition home or self-care (01) ==
PROVIDERS: Emergency Provider Emergency Medicine
DX: L05.01 Pilonidal cyst with abscess (principal); E66.01 Morbid (severe) obesity due to excess calories; Z68.42 Body mass index [BMI] 45.0-49.9, adult
CPT/HCPCS: 10060; 36415; 80053; 83605; 85025; 87040; 96361; 96374; 96375; 99284; J2270; J3360; J3370